=== PATIENT | female | born 2000 | race Caucasian/White ===

== ENCOUNTER 2019-06-26 01:43 | Emergency (ER) | payer OTHER ==
[~2019-06-26] VITALS: Ht 144.8 cm; Wt 55.5 kg
[~2019-06-26 01:43] MED LIST: AZIT250T PO; BENZ-6 PO; IBUP-1542 PO
[2019-06-26 01:46] VITALS: BP 127/79; PULSE 69; RESP 17; Ht 144.8 cm; Wt 55.5 kg
[2019-06-26] MEDS ORDERED: GUAIFENESIN/CODEINE 5ML CUP PO ONE (02:30)
[2019-06-26] MEDS ORDERED: IBUPROFEN 600 MG TAB PO ONE (02:30)
== END 2019-06-26 02:35 | disposition home or self-care (01) ==
LOC: FTE 01:43
DX: J02.9 Acute pharyngitis, unspecified (principal); J40 Bronchitis, not specified as acute or chronic
CPT/HCPCS: 81025; Z7502; Z7610; 99283